=== PATIENT | female | born 1975 ===

== ENCOUNTER 2025-04-14 06:15 | Day surgery (SDC) | payer OTHER, SELFPAY ==
[2025-04-14] VITALS (8 sets, daily range): BP systolic 104–124; BP diastolic 55–72; BMI 21.0
[2025-04-14] MEDS: NORMOSOL-R/PLASMALYTE-A 1000 IV (13:30)
--- NOTE | 2025-04-14 15:05 | OR.RPT ---
Operative Report
Operative Report
Date
04/14/2025
Anesthesia Type:
General With peripheral block
Operative Indications:
Displaced right proximal humerus fracture
Operative Findings :
Same
Complications:
None
Implants:
8 mm x 150 mm T2 Radha proximal humeral nail
Procedure and Technique:
Open reduction internal fixation right proximal humerus fracture/insertion proximal humerus intramedullary
INDICATIONS FOR PROCEDURE:
Patient is an active 49-year-old female who sustained a fall injury to her right shoulder. She was ultimately diagnosed with a displaced right proximal humerus fracture predominantly 2 part in nature with greater than 100% displacement shaft
relative to the humeral head. We discussed with surgical nonsurgical options. After discussion patient elected proceed with surgical intervention. We discussed risks benefits and alternatives of surgery. Discussed the usual and expected
perioperative and postoperative course. After discussion written informed consent was obtained for operative fixation right proximal humerus fracture. We discussed both intramedullary nail fixation as well as plate and screw construct.
OPERATIVE PROCEDURE:
Patient was seen identified the preoperative holding area. Operation was marked. All questions were addressed and answered. She was taken to the operating room where general anesthesia was administered. Patient was placed supine on radiolucent
table. Small bump was placed under the scapula. Operative extremities prepped and draped in normal sterile fashion. Timeout was performed again identifying the correct operative extremity. Preoperative antibiotics were addressed. Orthogonal
fluoroscopic imaging confirmed a displaced predominantly 2 part proximal humerus fracture. A small incision was made and a Johns elevator was utilized to reduce the fracture both length and rotation.. Small incision was made just anterior to the
acromion. Guidewire was then passed through the central portion of the humeral head into the proximal humeral shaft. Reaming was performed. Appropriately sized intramedullary nail was then passed. Additional stab incisions were made utilizing
the aiming arm. Multiple screws were placed into the humeral head of appropriate length. Distal interlocking screws were also placed paying attention to version brissa to maintain appropriate humeral head version final orthogonal imaging confirmed
appropriate reduction of the fracture. Arm was rotated removed under live fluoroscopic imaging showed quite stable well reduced fracture. Satisfied with the extent of surgery, wounds were copiously irrigated with normal saline solution. Wounds
were closed in layered fashion utilizing 2-0 Vicryl for subcutaneous layer, andrew for skin. Mepilex dressings were placed. Anesthesia was reversed patient was taken to PACU in stable condition. Postoperative plans include nonweightbearing to
the operative extremity in a sling. Plan to see patient back 2 weeks postop for repeat clinical assessment repeat imaging removal of andrew
Disposition:
PACU stable condition
== END 2025-04-14 19:20 | disposition home or self-care (01) ==
LOC: SDS 06:15
PROVIDERS: ATTENDING PHYSICIAN Orthopaedic Surgery
DX: S42.201A Unspecified fracture of upper end of right humerus, initial encounter for closed fracture (principal); W19.XXXA Unspecified fall, initial encounter
CPT/HCPCS: 23615; C1713; 73060; 76000; C1769